=== PATIENT | male | born 1965 | race Caucasian/White ===

== ENCOUNTER → 2017-10-04 | Outpatient (CLI) | payer OTHER ==
[2017-10-04 08:00] LABS: ADD MAN DIFF? NO
[2017-10-04 08:25] LABS: BASO # 0.1 x10^3/uL (0.0-0.2); BASO % 1 % (0-3); EOS # 0.2 x10^3/uL (0.0-0.7); EOS % 2 % (0-3); HEMATOCRIT 50.1 % (39.0-53.0); HEMOGLOBIN 16.7 g/dL (13.0-17.5); LYMPH # 1.7 x10^3/uL (1.0-4.8); LYMPH % 21 % (24-48); MEAN CORPUSCULAR HEMOGLOBIN 32 pg (25-35); MEAN CORPUSCULAR HGB CONC 33 g/dL (31-37); MEAN CORPUSCULAR VOLUME 96 fL (79-100); MONO # 0.6 x10^3/uL (0.0-1.1); MONO % 8 % (0-9); NEUT # 5.4 x10^3uL (1.8-7.7); NEUT % 68 % (31-73); PLATELET COUNT 218 x10^3/uL (140-400); RED BLOOD COUNT 5.21 x10^6/uL (4.30-5.70); RED CELL DISTRIBUTION WIDTH 15.3 % (11.5-14.5)
[2017-10-04 08:26] LABS: ALBUMIN 3.9 g/dL (3.4-5.0); ALBUMIN/GLOBULIN RATIO 0.9 (1.0-1.7); ALK PHOS 52 U/L (46-116); ALT (SGPT) 28 U/L (16-63); ANION GAP 7 (6-14); AST (SGOT) 23 U/L (15-37); BLOOD UREA NITROGEN 13 mg/dL (8-26); BUN/CREATININE RATIO 13 (6-20); CALCIUM 8.7 mg/dL (8.5-10.1); CARBON DIOXIDE 32 mmol/L (21-32); CHLORIDE 103 mmol/L (98-107); CHOLESTEROL 190 mg/dL (0-200); GFR 78.5; GLUCOSE 102 mg/dL (70-99); HDLC 33 mg/dL (40-60); LDLC 146 mg/dL (0-100); NON-HDL CHOLESTEROL 157 mg/dL (0-129); POTASSIUM 3.8 mmol/L (3.5-5.1); SODIUM 142 mmol/L (136-145); TOTAL BILIRUBIN 0.6 mg/dL (0.2-1.0); TOTAL PROTEIN 8.2 g/dL (6.4-8.2); TRIGLYCERIDES 55 mg/dL (0-150); VLDLC 11 mg/dL (0-40)
[2017-10-04 08:27] LABS: CHOLESTEROL/HDL RATIO 5.8
[2017-10-04 08:34] LABS: THYROID STIM HORMONE (TSH) 1.884 uIU/mL (0.358-3.74)
[2017-10-04 08:34] LABS: FREE T4 0.98 ng/dL (0.76-1.46)
[2017-10-04 08:39] LABS: PROSTATE SPECIFIC ANTIGEN 0.58 ng/mL (0.00-4.00)
== END | disposition home or self-care (01) ==
LOC: LAB 06:50
DX: Z12.5 Encounter for screening for malignant neoplasm of prostate (principal); Z13.220 Encounter for screening for lipoid disorders; Z13.29 Encounter for screening for other suspected endocrine disorder; E66.9 Obesity, unspecified; Z79.899 Other long term (current) drug therapy
CPT/HCPCS: 36415; 80053; 80061; 82306; 84439; 84443; 85025; G0103

== ENCOUNTER → 2018-08-06 | Outpatient (CLI) | payer OTHER ==
--- NOTE | 2018-08-06 07:56 | RAD ---
CHEST PA LATERAL History: Worsening shortness of breath the last week, crackles Comparison: None. Findings: 2 views of the chest are submitted. There is airspace and interstitial opacity of the mid to inferior left hemithorax and also the right upper lobe, minimally of the right lower lobe. There is no significant pleural fluid or pneumothorax. Cardiac silhouette is within normal limits. Impression: 1. There is airspace and interstitial opacity bilaterally, no previous exams to evaluate for change. Findings may be due to infiltrates and/or edema, component of underlying interstitial lung disease not excluded. Electronically signed by: Kenneth Lyle MD (08/06/2018 7:52 AM) [id number]
== END | disposition home or self-care (01) ==
LOC: RAD 06:58
PROVIDERS: ATTEND Nurse Practitioner Gerontology
DX: R09.89 Other specified symptoms and signs involving the circulatory and respiratory systems (principal)
CPT/HCPCS: 71046

== ENCOUNTER → 2018-08-29 | Outpatient (CLI) | payer OTHER ==
--- NOTE | 2018-08-29 16:59 | RAD ---
CT chest without contrast 08/29/2018 CLINICAL INDICATION: Lung infiltrate, worsening shortness of breath, hypoxemia. COMPARISON: Chest 08/06/2018. TECHNIQUE: Multiple CT images of the chest were obtained without contrast. *One or more of the following individualized dose reduction techniques were utilized for this examination: 1. Automated exposure control. 2. Adjustment of the mA and/or kV according to patient size. 3. Use of iterative reconstruction technique. FINDINGS: Heart size is normal without significant pericardial effusion. The thoracic aorta is normal in caliber. Mild enlargement of the main pulmonary artery measuring 3.2 cm. No axillary or obvious hilar lymphadenopathy, though evaluation is limited in the absence of intravenous contrast. Mildly enlarged mediastinal lymphadenopathy with liability claims representative subcarinal lymphadenopathy measuring 1.2 cm short axis series 2/image 29. The central airways are patent. Incidental note is made of an azygos lobe. There is upper and lower lung traction bronchiectasis, subpleural reticulation and patchy groundglass opacities. Mild honeycombing in the anterior left upper lobe. There is a calcified granuloma in the superior segment left lower lobe. No pleural effusion or pneumothorax. There are no destructive osseous lesions. Limited images of the upper abdomen: Grossly unremarkable. IMPRESSION: 1. Upper and lower lung fibrosis in a pattern in consistent with UIP. Fibrotic type NSIP, chronic hypersensitivity pneumonitis , or drug toxicity (in the appropriate clinical setting) are considerations. 2. Mild pulmonary artery dilatation suggestive of pulmonary hypertension. 3. Mild mediastinal lymphadenopathy, likely reactive. Electronically signed by: Jed Aguila MD (08/29/2018 4:55 PM) [id number]
== END | disposition home or self-care (01) ==
LOC: CT 11:23
PROVIDERS: ATTEND Nurse Practitioner Gerontology
DX: J84.10 Pulmonary fibrosis, unspecified (principal); I28.8 Other diseases of pulmonary vessels; R59.1 Generalized enlarged lymph nodes
CPT/HCPCS: 71250

== ENCOUNTER → 2018-09-03 | Outpatient (CLI) | payer OTHER ==
--- NOTE | 2018-09-03 11:34 | CARD ---
MR#: [id number] Date of Study: 09/03/2018 Ordering Physician: BIN BARLOW, Referring Physician: BIN BARLOW, Tech: Bella Bass APPROVED REPORT EXAM: Two-dimensional and M-mode echocardiogram with Doppler and color Doppler. Other Information Quality : AverageHR: 82bpm INDICATION Edema RISK FACTORS Hypertension Hyperlipidemia 2D DIMENSIONS RVDd3.8 (2.9-3.5cm)Left Atrium(2D)4.1 (1.6-4.0cm) IVSd1.1 (0.7-1.1cm)Aortic Root(2D)3.5 (2.0-3.7cm) LVDd5.0 (3.9-5.9cm)LVOT Diameter2.4 (1.8-2.4cm) PWd1.5 (0.7-1.1cm)LVDs3.1 (2.5-4.0cm) FS (%) 38.3 %SV80.9 ml LVEF(%)68.3 (>50%) Aortic Valve AoV Peak Rashard.147.0cm/sAoV VTI29.3cm AO Peak GR.8.6mmHgLVOT Peak Rashard.101.9cm/s LVOT VTI 19.72cmAO Mean GR.5mmHg DEON (VMAX)2.95aj9ILJ (VTI)3.00cm2 Mitral Valve MV E Rhowlmka81.6cm/sMV DECEL THEO989bt MV A Lgcndhyx36.7cm/sMV OSL18wn E/A Ratio1.1MVA (PHT)3.31cm2 TDI E/Lateral E'8.0E/Medial E'9.9 Pulmonary Valve PV Peak Ituibqfm588.6cm/sPV Peak Grad.6mmHg Tricuspid Valve TR P. Ximdnkdk377vb/sRAP QIWOYNHN8opDd TR Peak Gr.91mhMqBKMJ95vfJn Pulmonary Vein S1 Dlyqumux74.7cm/sD2 Wdaepqng33.8cm/s PVa motonevl837mzwn LEFT VENTRICLE The left ventricle is normal size. There is mild to moderate concentric left ventricular hypertrophy. The left ventricular systolic function is normal. The Ejection Fraction is 55-60%. There is normal L V segmental wall motion. RIGHT VENTRICLE The right ventricle is normal size. There is normal right ventricular wall thickness. ATRIA The left atrium size is normal. The right atrium size is normal. The interatrial septum is intact wit h no evidence for an atrial septal defect or patent foramen ovale as noted on 2-D or Doppler imaging. AORTIC VALVE The aortic valve is normal in structure and function. Doppler and Color Flow revealed trace aortic re gurgitation. There is no significant aortic valvular stenosis. MITRAL VALVE The mitral valve is normal in structure and function. There is no mitral valve stenosis. Doppler and Color-flow revealed trace mitral regurgitation. TRICUSPID VALVE The tricuspid valve is normal in structure and function. Doppler and Color Flow revealed trace tricus pid regurgitation. There is no tricuspid valve stenosis. PULMONIC VALVE The pulmonic valve is not well visualized. Doppler and Color Flow revealed trace pulmonic valvular re gurgitation. GREAT VESSELS The aortic root is normal in size. Normal pulmonary venous flow (Doppler). The IVC is normal in size and collapses >50% with inspiration. PERICARDIAL EFFUSION There is no evidence of significant pericardial effusion. Critical Notification Critical Value: No <Conclusion> The left ventricular systolic function is normal. The Ejection Fraction is 55-60%. There is normal LV segmental wall motion. Trace mitral regurgitation. Trace tricuspid regurgitation. There is no evidence of significant pericardial effusion. Signed by : Griffin Chris, Electronically Approved : 09/03/2018 11:33:01
== END | disposition home or self-care (01) ==
LOC: ECHO 08:14
PROVIDERS: ATTEND Nurse Practitioner Gerontology
DX: R60.0 Localized edema (principal); R91.8 Other nonspecific abnormal finding of lung field; I10 Essential (primary) hypertension; E78.5 Hyperlipidemia, unspecified
CPT/HCPCS: 93306

== ENCOUNTER → 2018-10-02 | Outpatient (CLI) | payer OTHER ==
[~2018-10-02] MED LIST: ATOR10TA60 PO; BECL10.62 IH; CHOL2000 PO; MULT1TAB52 PO; OMEP20CA10 PO; OXYC5TAB4 PO; SENN-22 PO; VALS1TAB8 PO
[2018-10-02 09:04] LABS: ALBUMIN 3.4 g/dL (3.4-5.0); DIRECT BILIRUBIN 0.2 mg/dL (0.0-0.2); TOTAL BILIRUBIN 0.9 mg/dL (0.2-1.0); TOTAL PROTEIN 7.8 g/dL (6.4-8.2)
[2018-10-02 09:23] LABS: C-REACTIVE PROTEIN 5.1 mg/L (0-3.3)
[2018-10-02 21:17] LABS: RHEUMATOID FACTOR <10.0 IU/mL (0.0-13.9)
[2018-10-04 14:22] LABS: C ANCA <1:20 titer (Neg:<1:20); P ANCA <1:20 titer (Neg:<1:20)
[2018-10-06 19:18] LABS: ANA INTERP Negative (.)
== END | disposition home or self-care (01) ==
LOC: LAB 08:15
PROVIDERS: ATTEND Internal Medicine Pulmonary Disease
DX: R09.02 Hypoxemia (principal)
CPT/HCPCS: 36415; 80076; 85651; 86021; 86038; 86140; 86431

== ENCOUNTER → 2018-11-14 | Outpatient (CLI) | payer OTHER ==
--- NOTE | 2018-11-14 08:54 | RAD ---
PQRS Compliance statement: One or more of the following individualized dose reduction techniques were utilized for this examination: 1. Automated exposure control. 2. Adjustment of the mA and/or kV according to patient size. 3. Use of iterative reconstruction technique. Indication:abdomen pain, llq pain TECHNIQUE: CT abdomen and pelvis without IV contrast with multiplanar reformats. COMPARISON: None FINDINGS: Limited evaluation of solid abdominal and pelvic organs due to lack of IV contrast. Heart is normal in size. No pericardial or pleural effusion. Interstitial opacities are seen in the bilateral lower lobes noncontrast appearance of the liver, spleen, gallbladder, pancreas, adrenals and kidneys are within normal limits. No enlarged retroperitoneal or pelvic adenopathy. No free pelvic fluid or ascites. Circumferential wall thickening is seen of the short segment of the sigmoid colon with mild pericolonic inflammatory changes. No bowel obstruction. Normal appendix. The prostate and seminal vesicles show no large mass. Urinary bladder is within normal limits. Bilateral L5 pars defect with grade 1 anterolisthesis of L5 on S1. No suspicious bony lesion. IMPRESSION: Limited evaluation of solid abdominal and pelvic organs due to lack of IV contrast. 1. Short segment wall thickening of the proximal sigmoid colon with pericolic inflammatory changes without diverticula. Findings suggests focal colitis. Colonoscopy recommended after acute phase resolves to rule out underlying mass. 2. Chronic interstitial changes in the visualized lung bases suggests changes of interstitial lung disease. Electronically signed by: Jay Jay Hdz DO (11/14/2018 8:51 AM) [id number]
== END | disposition home or self-care (01) ==
LOC: CT 08:17
PROVIDERS: ATTEND Nurse Practitioner Gerontology
DX: K63.89 Other specified diseases of intestine (principal); M43.17 Spondylolisthesis, lumbosacral region
CPT/HCPCS: 74176

== ENCOUNTER → 2018-11-26 | Outpatient (CLI) | payer OTHER ==
[~2018-11-26] MED LIST changes: +ALBUTEROL SULFATE 2.5 MG/3 ML NEBU. NEB ONE
--- NOTE | 2018-11-28 15:00 | RESP ---
DATE OF SERVICE: The patient underwent full pulmonary function testing dated 11/26/2018. The FEV1 to FVC ratio was 76%, FEV1 was 2.01 liters or 51% of predicted. FVC was likewise diminished at 2.63 liters at 51% of predicted. There was no significant bronchodilator response. Total lung capacity was decreased at 58% of predicted. Vital capacity was decreased. Residual volume was decreased. Diffusion capacity was preserved. IMPRESSION: 1. Moderate restrictive disorder. 2. Preserved DLCO. CEDRICK MORAN MD DR: ALDO/austyn JOB#: [id number] / [id number] CHRISSY Rush
== END | disposition home or self-care (01) ==
LOC: PF 09:40
PROVIDERS: ATTEND Internal Medicine Critical Care Medicine
DX: J98.4 Other disorders of lung (principal)
CPT/HCPCS: 94060; 94640; 94729; J7613

== ENCOUNTER → 2018-12-10 | Outpatient (CLI) | payer OTHER ==
[~2018-12-10] MED LIST changes: -ALBUTEROL SULFATE 2.5 MG/3 ML NEBU. NEB ONE
[2018-12-10 14:15] LABS: BASO # 0.1 x10^3/uL (0.0-0.2); BASO % 1 % (0-3); EOS # 0.2 x10^3/uL (0.0-0.7); EOS % 3 % (0-3); HEMATOCRIT 48.2 % (39.0-53.0); HEMOGLOBIN 16.1 g/dL (13.0-17.5); LYMPH # 1.6 x10^3/uL (1.0-4.8); LYMPH % 19 % (24-48); MEAN CORPUSCULAR HEMOGLOBIN 32 pg (25-35); MEAN CORPUSCULAR HGB CONC 34 g/dL (31-37); MEAN CORPUSCULAR VOLUME 96 fL (79-100); MONO # 0.7 x10^3/uL (0.0-1.1); MONO % 8 % (0-9); NEUT # 5.7 x10^3uL (1.8-7.7); NEUT % 69 % (31-73); PLATELET COUNT 187 x10^3/uL (140-400); RED BLOOD COUNT 5.03 x10^6/uL (4.30-5.70); RED CELL DISTRIBUTION WIDTH 14.8 % (11.5-14.5); WHITE BLOOD COUNT 8.2 x10^3/uL (4.0-11.0)
[2018-12-10 14:23] LABS: CALCIUM 8.9 mg/dL (8.5-10.1); CREATININE 1.1 mg/dL (0.7-1.3); POTASSIUM 3.7 mmol/L (3.5-5.1)
[2018-12-10 14:26] LABS: PROTHROMBIN TIME PATIENT 12.7 SEC (11.7-14.0)
--- NOTE | 2018-12-10 14:43 | EKG ---
[facility] [address] [place] [address] Test Date: 2018-12-10 Test Time: 13:34:01 Pat Name: SARAN CAAL Department: Room: Gender: M Area Sales Manager: : 1965 Requested By: VARINDER BURTON Order Number: [id number] Reading MD: Yared Obrien MD Measurements Intervals Badin Rate: 73 P: 41 WI: 192 QRS: 116 QRSD: 88 T: 24 QT: 368 QTc: 409 Interpretive Statements SINUS RHYTHM MILD RIGHT AXIS DEVIATION NON-SPECIFIC FINDINGS Electronically Signed On 12-11-2018 9:10:11 CDT by Yared Obrien MD
== END | disposition home or self-care (01) ==
LOC: SURGPAT 12:21
PROVIDERS: ATTEND Thoracic Surgery (Cardiothoracic Vascular Surgery)
DX: Z01.818 Encounter for other preprocedural examination (principal); R94.31 Abnormal electrocardiogram [ECG] [EKG]
CPT/HCPCS: 36415; 80048; 85025; 85610; 85730; 93005

== ENCOUNTER → 2019-04-03 | Outpatient (CLI) | payer OTHER ==
[2018-12-11 11:41] VITALS: BP 124/70
--- NOTE | 2019-04-03 14:03 | RAD ---
CT chest without contrast HISTORY: Interstitial lung disease PQRS Compliance Statement: One or more of the following individualized dose reduction techniques were utilized for this examination: 1. Automated exposure control 2. Adjustment of the mA and/or kV according to patient size 3. Use of iterative reconstruction technique COMPARISON: August 29, 2018 FINDINGS: Thyroid gland unremarkable No pericardial or pleural effusions Mediastinal lymphadenopathy is stable No acute infiltrates. Interstitial fibrosis stable compared with August 29, 2018. This includes involvement of the upper and lower lobes. The interstitial interlobular prominence with subpleural reticulation and groundglass changes within stable. No new or progressive nodules are present. Visualized upper abdominal organs are unremarkable IMPRESSION: Stable whole lung interstitial fibrosis when compared with August 29 examination. No new or progressive changes or nodules are apparent. Stable mediastinal lymphadenopathy Electronically signed by: Obdulio Babb MD (04/03/2019 1:54 PM) [facility]
== END | disposition home or self-care (01) ==
LOC: CT 08:04
PROVIDERS: ATTEND Internal Medicine Critical Care Medicine
DX: J84.10 Pulmonary fibrosis, unspecified (principal); R59.0 Localized enlarged lymph nodes; J84.9 Interstitial pulmonary disease, unspecified
CPT/HCPCS: 71250

== ENCOUNTER → 2019-07-09 | Outpatient (CLI) | payer OTHER ==
[2018-12-11 11:41] VITALS: BP 124/70
[2019-07-09 08:17] LABS: BASO % 0 % (0-3); EOS # 0.1 x10^3/uL (0.0-0.7); EOS % 1 % (0-3); HEMATOCRIT 49.4 % (39.0-53.0); HEMOGLOBIN 16.9 g/dL (13.0-17.5); LYMPH # 1.1 x10^3/uL (1.0-4.8); LYMPH % 11 % (24-48); MEAN CORPUSCULAR HEMOGLOBIN 33 pg (25-35); MEAN CORPUSCULAR HGB CONC 34 g/dL (31-37); MEAN CORPUSCULAR VOLUME 95 fL (79-100); MONO # 0.9 x10^3/uL (0.0-1.1); MONO % 9 % (0-9); NEUT # 7.9 x10^3/uL (1.8-7.7); NEUT % 79 % (31-73); PLATELET COUNT 206 x10^3/uL (140-400); RED BLOOD COUNT 5.18 x10^6/uL (4.30-5.70); RED CELL DISTRIBUTION WIDTH 15.4 % (11.5-14.5); WHITE BLOOD COUNT 10.1 x10^3/uL (4.0-11.0)
[2019-07-09 09:20] LABS: ALBUMIN/GLOBULIN RATIO 1.1 (1.0-1.7); CALCIUM 8.9 mg/dL (8.5-10.1); GFR 77.9; TOTAL BILIRUBIN 0.6 mg/dL (0.2-1.0); TOTAL PROTEIN 7.8 g/dL (6.4-8.2)
[2019-07-09 09:26] LABS: THYROID STIM HORMONE (TSH) 1.574 uIU/mL (0.358-3.74)
[2019-07-09 09:31] LABS: POTASSIUM 4.2 mmol/L (3.5-5.1)
== END | disposition home or self-care (01) ==
LOC: LAB 06:46
PROVIDERS: ATTEND Nurse Practitioner Gerontology
DX: R53.83 Other fatigue (principal)
CPT/HCPCS: 36415; 80053; 82306; 84439; 84443; 85025

== ENCOUNTER → 2019-07-23 | Outpatient (CLI) | payer OTHER ==
[2018-12-11 11:41] VITALS: BP 124/70
--- NOTE | 2019-07-23 15:38 | KCIC ---
EYE FOR FOREIGN BODY History: MRI screening, previous metal to the left eye Comparison: None. Findings: 2 views of the orbits are submitted. No metallic foreign body is identified in region of orbits. Impression: 1. No metallic foreign body is identified in the region of the orbits. Electronically signed by: Kenneth Lyle MD (07/23/2019 3:35 PM) [email or web address]
--- NOTE | 2019-07-23 16:27 | KCIC ---
MRI Brain without contrast History: Acute intractable headache Technique: Multiplanar, multisequential noncontrast MR imaging was performed of the brain. Comparison: None Findings: There is some motion degradation, some image sequences repeated although also degraded by motion.The ventricles, sulci, and cisterns are within normal limits in size and configuration. There is no significant midline shift, intraaxial mass effect, or focal abnormal extra-axial fluid collection. There is no convincing significant focal signal abnormality of the brain parenchyma, limited motion for subtle signal change due to motion. There is no significant hemosiderin deposition the brain parenchyma. There is preservation of the major intracranial flow-voids at the skull base. The mastoid air cells are aerated. The cerebellar tonsils are normal in location. There is no significant abnormality of the pineal gland or pituitary gland. There is patchy mild bilateral ethmoid air cell mucosal thickening. There is nonspecific somewhat heterogeneous low signal of the marrow of the nonexpanded clivus. Impression: 1. Exam is degraded by motion, no significant intracranial abnormality identified. Electronically signed by: Kenneth Lyle MD (07/23/2019 4:24 PM) [facility]
== END | disposition home or self-care (01) ==
LOC: KCIC MRI 15:13
PROVIDERS: ATTEND Nurse Practitioner Gerontology
DX: J34.89 Other specified disorders of nose and nasal sinuses (principal)
CPT/HCPCS: 70030; 70551

== ENCOUNTER 2019-10-07 07:15 | Day surgery (SDC) | payer OTHER ==
[~2019-10-07] VITALS: Ht 180.3 cm; Wt 152.9 kg
[~2019-10-07 07:15] MED LIST changes: +CALC600T4 PO; +HYDROmorphone 2 MG/ML VIAL IV PRN; +IV RINGERS,LACTATED 1000ML 1,000 ML IV SCH; +MORPHINE SULFATE 2 MG/ML VIAL. IV PRN; +OMEG1CAP27 PO; -OMEP20CA10 PO; +OMEP20CA16 PO; +ONDANSETRON PF 4 MG/2 ML VIAL. IV PRN; +PRED20TA PO; +PROCHLORPERAZINE 10 MG/2 ML VIAL. IV PRN; +fentaNYL PF VIAL 100 MCG/2 ML VIAL IV PRN
[2019-10-07] MEDS: CYCLOPENTOLATE 1% OPTH SOLUTION 2ML BOTTLE. OS SCH ×3 (10:00→10:10)
[2019-10-07] MEDS: PHENYLEPHRINE 10% OPHTH SOLUTION 5ML BOTTLE. OS SCH ×3 (10:00→10:10)
[2019-10-07] MEDS ORDERED: NEO/POLYMYX/DEXAMETH OPHTH OINTMENT 3.5GM TUBE. ONE (10:02)
[2019-10-07] MEDS ORDERED: LIDOCAINE 1% PF 2 ML VIAL. ONE (10:02)
[2019-10-07] MEDS ORDERED: CHONDROIT-SOD-HYALURONATE KIT. ONE (10:02)
[2019-10-07] MEDS ORDERED: CIPROFLOXACIN 0.3% OPHTH SOLUTION 5ML BOTTLE. OS ONE (11:00)
[2019-10-07] MEDS ORDERED: PROPARACAINE 0.5% OPHTH SOLUTION 15ML BOTTLE. OS ONE (11:00)
[2019-10-07] MEDS ORDERED: LIDOCAINE 2% JELLY 6ML IN APPLICATOR. MM SCH (11:00)
[2019-10-07] MEDS ORDERED: MIDAZOLAM HCL/PF 2 MG/2 ML VIAL. ONE (11:39)
[2019-10-07 12:11] VITALS: BP 145/85
[2019-10-07] MEDS ORDERED: TETRACAINE 0.5% OPHTH SOLUTION 4ML BOTTLE. OS ONE (12:15)
--- NOTE | 2019-10-07 12:44 | OP ---
DATE OF SURGERY: 10/07/2019 PREOPERATIVE DIAGNOSIS: Senile cataract, left eye. POSTOPERATIVE DIAGNOSIS: Senile cataract, left eye. PROCEDURE: Phacoemulsification with posterior chamber lens implant, left eye. ANESTHESIA: Topical with MAC. DESCRIPTION OF PROCEDURE: The patient's dilating and anesthetic drops were applied in the outpatient department and the Honan balloon cuff used for about 15-20 minutes. The patient was brought to the operating room, positioned on the table and the left eye was prepped and draped in the usual sterile manner for an intraocular procedure. A lid speculum was placed between the eyelids and the operating microscope brought into position. A paracentesis incision was made inferotemporally and 1% lidocaine injected in the anterior chamber followed by an injection of Viscoat. The primary 2.4 mm incision was made temporally. A capsulorrhexis was made about the dilated pupillary border. It was about 6 mm in size. The lens nucleus was hydrodissected and phacoemulsified without difficulty and the remaining cortex aspirated with the I/A handpiece. Provisc was used to insufflate the bag and a posterior chamber lens, which was multifocal and toric in nature, was placed into the bag without difficulty. The lens was rotated so that the toric axis was at 15-20 degrees. The viscoelastic was aspirated and the eye pressurized and the wound checked for leaks and there were none. The speculum and drape were removed and Maxitrol ointment instilled in the conjunctival sac and the eye was shielded. The patient was taken to recovery room in satisfactory condition. There were no complications and I will see him tomorrow in my office. K CAMMY WOLF MD DR: XAVIER/austyn JOB#: [id number] / [id number]
== END 2019-10-07 12:40 | disposition home or self-care (01) ==
LOC: SURG 07:15
PROVIDERS: ATTEND Ophthalmology
DX: H25.89 Other age-related cataract (principal); E78.00 Pure hypercholesterolemia, unspecified; G47.30 Sleep apnea, unspecified; J84.10 Pulmonary fibrosis, unspecified; E66.01 Morbid (severe) obesity due to excess calories; Z68.42 Body mass index [BMI] 45.0-49.9, adult; Z87.891 Personal history of nicotine dependence; Z98.42 Cataract extraction status, left eye; Z98.41 Cataract extraction status, right eye; Z72.89 Other problems related to lifestyle; Z96.1 Presence of intraocular lens
CPT/HCPCS: 66984; C1780; J0171; J2250

== ENCOUNTER 2019-10-14 06:28 | Day surgery (SDC) | payer OTHER ==
[~2019-10-14] VITALS: Ht 180.3 cm; Wt 152.9 kg
[~2019-10-14 06:28] MED LIST changes: +CIPROFLOXACIN 0.3% OPHTH SOLUTION 5ML BOTTLE. OD ONE; -HYDROmorphone 2 MG/ML VIAL IV PRN; -IV RINGERS,LACTATED 1000ML 1,000 ML IV SCH; +LIDOCAINE 2% JELLY 6ML IN APPLICATOR. MM ONE; -MORPHINE SULFATE 2 MG/ML VIAL. IV PRN; -ONDANSETRON PF 4 MG/2 ML VIAL. IV PRN; -PROCHLORPERAZINE 10 MG/2 ML VIAL. IV PRN; +PROPARACAINE 0.5% OPHTH SOLUTION 15ML BOTTLE. OD ONE; -fentaNYL PF VIAL 100 MCG/2 ML VIAL IV PRN
[2019-10-14] MEDS ORDERED: LIDOCAINE 1% PF 2 ML VIAL. ID PRN (07:00)
[2019-10-14] MEDS ORDERED: IV RINGERS,LACTATED 1000ML 1,000 ML IV SCH (07:00)
[2019-10-14] MEDS ORDERED: HYDROmorphone 2 MG/ML VIAL IV PRN (07:00)
[2019-10-14] MEDS ORDERED: PROCHLORPERAZINE 10 MG/2 ML VIAL. IV PRN (07:00)
[2019-10-14] MEDS ORDERED: ONDANSETRON PF 4 MG/2 ML VIAL. IV PRN (07:00)
[2019-10-14] MEDS ORDERED: MORPHINE SULFATE 2 MG/ML VIAL. IV PRN (07:00)
[2019-10-14] MEDS ORDERED: fentaNYL PF VIAL 100 MCG/2 ML VIAL IV PRN ×2 (07:00)
[2019-10-14] MEDS ORDERED: CHONDROIT-SOD-HYALURONATE KIT. ONE (07:35)
[2019-10-14] MEDS ORDERED: LIDOCAINE 1% PF 2 ML VIAL. ONE (07:35)
[2019-10-14] MEDS ORDERED: TETRACAINE 0.5% OPHTH SOLUTION 4ML BOTTLE. OD ONE (07:45)
[2019-10-14] MEDS ORDERED: NEO/POLYMYX/DEXAMETH OPHTH SUSPENSION 5ML BOTTLE. OD ONE (07:45)
[2019-10-14] MEDS: CYCLOPENTOLATE 1% OPTH SOLUTION 2ML BOTTLE. OD SCH ×3 (10:13→10:24)
[2019-10-14] MEDS: PHENYLEPHRINE 10% OPHTH SOLUTION 5ML BOTTLE. OD SCH ×3 (10:13→10:24)
[2019-10-14] MEDS ORDERED: MIDAZOLAM HCL/PF 2 MG/2 ML VIAL. ONE (10:43)
[2019-10-14 12:26] VITALS: BP 134/72
--- NOTE | 2019-10-14 14:08 | OP ---
DATE OF SURGERY: 10/14/2019 PREOPERATIVE DIAGNOSIS: Senile cataract, right eye. POSTOPERATIVE DIAGNOSIS: Senile cataract, right eye. PROCEDURE: Phacoemulsification with posterior chamber lens implant with use of multifocal toric implant. ANESTHESIA: Topical with MAC. DESCRIPTION OF PROCEDURE: The patient's anesthetic and dilating drops were placed in the right eye in the outpatient department and the Honan balloon cuff used for about 10-15 minutes. The eye was marked for astigmatism in the outpatient department. The patient was then brought to the operating room and positioned on the table and the right eye was prepped and draped in the usual sterile manner for an intraocular procedure. A lid speculum was placed between the eyelids and the operating microscope brought into position. There was good dilation of the pupil. A paracentesis incision was made superior temporally and an injection of 1% lidocaine was made followed by an injection of Viscoat. The 2.4 mm keratome was used to make the temporal incision. A capsulorrhexis was made about the dilated pupillary border and the lens nucleus hydrodissected. The phaco handpiece was used to phacoemulsify the lens nucleus and the remaining cortex was aspirated with the I/A handpiece. The multifocal toric implant was injected into the bag and rotated to the proper axis, which was about 150 degrees. The viscoelastic was aspirated with the I/A handpiece. The lens was checked again for astigmatism position and it was good. The wound was hydrated and the eye was pressurized and the wound was checked for leaks and there were none. The speculum and drape were removed. Maxitrol ointment instilled in the conjunctival sac and the eye was shielded. The patient was taken to the recovery room in satisfactory condition. There were no complications. I will see the patient tomorrow in my office. K CAMMY WOLF MD DR: XAVIER/austyn JOB#: [id number] / [id number]
== END 2019-10-14 12:42 | disposition home or self-care (01) ==
LOC: SURG 06:28
PROVIDERS: ATTEND Ophthalmology
DX: H25.811 Combined forms of age-related cataract, right eye (principal); I10 Essential (primary) hypertension; K21.9 Gastro-esophageal reflux disease without esophagitis; Z79.899 Other long term (current) drug therapy; Z98.890 Other specified postprocedural states; Z83.518 Family history of other specified eye disorder
CPT/HCPCS: 66982; J0171; V2632; J2250; V2788

== ENCOUNTER → 2020-02-18 | Outpatient (CLI) | payer OTHER ==
[~2020-02-18] MED LIST changes: +BUSP5TAB PO; -CALC600T4 PO; +CALC600T5 PO; -CIPROFLOXACIN 0.3% OPHTH SOLUTION 5ML BOTTLE. OD ONE; -LIDOCAINE 2% JELLY 6ML IN APPLICATOR. MM ONE; +MULT-445 PO; -MULT1TAB52 PO; -PROPARACAINE 0.5% OPHTH SOLUTION 15ML BOTTLE. OD ONE
[2020-02-18 07:40] LABS: ALBUMIN 3.6 g/dL (3.4-5.0); ALBUMIN/GLOBULIN RATIO 0.9 (1.0-1.7); CREATININE 0.8 mg/dL (0.7-1.3); GFR 100.7; TOTAL BILIRUBIN 0.7 mg/dL (0.2-1.0); TOTAL PROTEIN 7.4 g/dL (6.4-8.2)
[2020-02-18 07:54] LABS: CHOLESTEROL/HDL RATIO 4.5
[2020-02-19 00:07] LABS: HEMOGLOBIN A1C 5.7 % (4.8-5.6)
== END | disposition home or self-care (01) ==
LOC: LAB 06:59
PROVIDERS: ATTEND Family Medicine
DX: R73.09 Other abnormal glucose (principal)
CPT/HCPCS: 36415; 80053; 80061; 83036

== ENCOUNTER → 2020-02-26 | Outpatient (CLI) | payer OTHER ==
[~2020-02-26] MED LIST changes: +CALC600T4 PO; -CALC600T5 PO
== END | disposition home or self-care (01) ==
LOC: LAB 13:16
PROVIDERS: ATTEND Internal Medicine Cardiovascular Disease
DX: Z11.59 Encounter for screening for other viral diseases (principal); Z01.810 Encounter for preprocedural cardiovascular examination
CPT/HCPCS: 36415; U0003

== ENCOUNTER 2020-03-01 06:51 | Outpatient (CLI) | payer OTHER ==
[~2020-03-01] VITALS: Ht 180.3 cm; Wt 145.1 kg
[2020-03-01] VITALS (12 sets, daily range): BP systolic 111–134; BP diastolic 67–79
[~2020-03-01 06:51] MED LIST changes: -BUSP5TAB PO
[2020-03-01 07:27] LABS: HEMATOCRIT 48.9 % (39.0-53.0); HEMOGLOBIN 16.7 g/dL (13.0-17.5); RED BLOOD COUNT 5.09 x10^6/uL (4.30-5.70); RED CELL DISTRIBUTION WIDTH 14.9 % (11.5-14.5); WHITE BLOOD COUNT 9.4 x10^3/uL (4.0-11.0)
[2020-03-01 07:36] LABS: CALCIUM 8.7 mg/dL (8.5-10.1); CREATININE 0.9 mg/dL (0.7-1.3); GFR 87.9; POTASSIUM 3.9 mmol/L (3.5-5.1)
[2020-03-01 07:37] LABS: PROTHROMBIN TIME PATIENT 12.1 SEC (11.7-14.0)
[2020-03-01] MEDS ORDERED: LIDOCAINE 1% PF 2 ML VIAL. ONE (07:42)
[2020-03-01] MEDS ORDERED: IOHEXOL 300 MG/ML 100ML VIAL. ONE (07:42)
[2020-03-01] MEDS ORDERED: HEPARIN for IV BOLUS 10,000 UNIT/10 ML VIAL. ONE (08:02)
[2020-03-01] MEDS ORDERED: MIDAZOLAM HCL/PF 5 MG/5 ML VIAL. ONE (08:02)
[2020-03-01] MEDS ORDERED: fentaNYL PF VIAL 100 MCG/2 ML VIAL ONE (08:02)
[2020-03-01] MEDS ORDERED: NITROGLYCERIN 200 MCG/2 ML SYRINGE FOR CATH/VASC LAB. ONE (08:02)
[2020-03-01] MEDS ORDERED: VERAPAMIL 5 MG/2 ML VIAL. ONE (08:02)
[2020-03-01] MEDS ORDERED: BUSP5TAB PO (08:14)
[2020-03-01] MEDS ORDERED: NITROGLYCERIN 200 MCG/2 ML SYRINGE FOR CATH/VASC LAB. IART ONE (08:15)
[2020-03-01] MEDS ORDERED: MIDAZOLAM HCL/PF 5 MG/5 ML VIAL. IV ONE (08:15)
[2020-03-01] MEDS ORDERED: LIDOCAINE 1% PF 2 ML VIAL. INJ ONE (08:15)
[2020-03-01] MEDS ORDERED: VERAPAMIL 5 MG/2 ML VIAL. IART ONE (08:15)
[2020-03-01] MEDS ORDERED: IOHEXOL 300 MG/ML 100ML VIAL. IART ONE (08:15)
[2020-03-01] MEDS ORDERED: fentaNYL PF VIAL 100 MCG/2 ML VIAL IV ONE (08:15)
[2020-03-01] MEDS ORDERED: HEPARIN for IV BOLUS 10,000 UNIT/10 ML VIAL. IART ONE (08:15)
[2020-03-01] MEDS ORDERED: IV 1/2 NORMAL SALINE 1,000 ML IV SCH (09:10)
--- NOTE | 2020-03-01 09:10 | PDOC ---
MODERATE SEDATION ASSESSMENT RISKS/ALTERNATIVES Risks/Alternatives Risks and alternatives of this type of sedation and procedure discussed with: RISK/ALTERNATIVES: Patient H & P ON CHART H & P H & P on chart and reviewed for co-morbid conditions and appropriate labs. H&P ON CHART: Yes STATUS PREG STATUS ASSESSED: N/A MEDS/ALLERGIES REVIEWED Meds/Allergies Reviewed Medications and Allergies including time and route of recently administered narcotics and sedatives. MEDS/ALLERGIES REVIEWED: Yes ASA RATING ASA RATING: II AIRWAY ASSESSMENT Airway Assessment Airway patency, oral function limitations, presence of caps, crowns, dentures, partials, and ability to extend neck assessed. AIRWAY ASSESSMENT: Yes MALLAMPATI SCORE MALLAMPATI SCORE: II PRE-SEDATION ASSESSMENT PRE-SEDATION ASSESSMENT: Yes LEYLA VAZQUEZ MD Mar 01, 2020 09:10
--- NOTE | 2020-03-01 09:14 | CARD ---
MR#: [id number] Date of Study: 03/01/2020 Ordering Physician: LEYLA VAZQUEZ, Referring Physician: LEYLA VAZQUEZ Tech: SALVADOR DUARTE RTR APPROVED REPORT Technologist: SALVADOR DUARTE RTR Nurse: Lilliam Higuera R.N. Procedure(s) performed: Left heart catheterization, selective coronary angiography and left ventricul ography via right transradial approach MODERATE SEDATION TIME: 35 minutes FLUORO TIME: 3.3 MIN DOSE: 76.8 GYCM2 CONTRAST: 133CC OMNI INDICATION The indication(s) include : Chest pain and abnormal stress test. CSHA Clinical Frailty Scale CSHA Clinical Frailty Scale: Managing Well Heart Failure Heart Failure: No PROCEDURE NARRATIVE After explaining the risks, benefits and alternative options, informed consent was obtained from odette ent. Patient was brought to the cardiac Central Office Maintainer and right wrist was prepped and draped in the usual fashion after confirming a positive modified Massimo's test. Arterial access was obtained in the righ t radial artery and a 6 Ivorian sheath was inserted. 6 Ivorian Abundio catheter was used to perform tanvir ective angiography of the left and right coronary arteries. 6 Ivorian pigtail catheter was used to pe rform left ventriculography. Patient tolerated the procedure well. Hemostasis was achieved using TR band. There were no immediate complications. The following findings were noted. FINDINGS 1. Hemodynamics: Left ventricular end-diastolic pressure of 19 mmHg. No pullback gradient across th e aortic valve. 2. Left ventriculography: Normal left ventricle systolic function with ejection fraction estimated at 60%. No significant mitral regurgitation seen. 3. Coronary angiography: a. The left main coronary artery arose from the left sinus of Valsalva, gave rise to the left anteri or descending and left circumflex arteries and did not show any significant stenosis. b. The left anterior descending artery did not show any significant stenosis. c. The left circumflex artery did not show any significant stenosis. d. The right coronary artery was a large and dominant vessel arising from the right sinus of Valsalv a that did not show any significant stenosis. Conclusion 1. No significant coronary disease. 2. Normal left ventricular systolic function with ejection fraction estimated at 60%. Signed by : Leyla Vazquez, Electronically Approved : 03/01/2020 09:14:07
[2020-03-01] MEDS ORDERED: 0.9 % SODIUM CHLORIDE 10 ML DISP.SYRIN. IV PRN (09:15)
--- NOTE | 2020-03-01 12:26 | NUR ---
Discharge Note: SARAN CAAL Discharge instructions and discharge home medications reviewed with Patient and a copy given. All questions have been answered and understanding verbalized. Dressing to R radial site clean and dry, armboard in place. Pt ambulated with steady gait, tolerated PO. The following instructions and handouts were given: radial site care, sedation, work note provided. Discontinued lines and drains: Peripheral IV intact. Patient discharged to Home or Self Care with Family Member via Wheelchair NATALIYA RATLIFF Addendum: 03/01/20 at 1235 by GUERDA GRANT RN Amended: Links added.
== END 2020-03-01 12:25 | disposition home or self-care (01) ==
LOC: CCL 06:51
PROVIDERS: ATTEND Internal Medicine Cardiovascular Disease
DX: R07.9 Chest pain, unspecified (principal)
CPT/HCPCS: 36415; 80048; 85027; 85610; 93458; 99152; 99153; C1769; C1892; J1644; J2250; J3010; J3490; Q9967

== ENCOUNTER → 2020-03-29 | Outpatient (CLI) | payer OTHER ==
[~2020-03-29] MED LIST changes: +BUSP5TAB PO; -CALC600T4 PO; +CALC600T5 PO
[2020-03-29 13:39] LABS: BILIRUBIN,URINE NEGATIVE (NEG); CLARITY,URINE CLEAR; COLOR,URINE YELLOW; NITRITE,URINE NEGATIVE (NEG); PROTEIN,URINE NEGATIVE (NEG-TRACE); UROBILINOGEN,URINE 0.2 mg/dL (0.2 mg/dL)
[2020-03-29 13:51] LABS: SQUAMOUS EPITHELIAL CELL,UR OCC /LPF
[2020-03-29 13:52] LABS: BACTERIA,URINE 0 /HPF (0-FEW); RBC,URINE 0 /HPF (0-2); WBC,URINE 0 /HPF (0-4)
== END | disposition home or self-care (01) ==
LOC: LAB 12:10
PROVIDERS: ATTEND Family Medicine
DX: Z68.41 Body mass index [BMI] 40.0-44.9, adult (principal)
CPT/HCPCS: 81001; 87086

== ENCOUNTER → 2020-05-27 | Outpatient (CLI) | payer OTHER ==
[~2020-05-27] MED LIST changes: -CALC600T5 PO; +CALC600T6 PO
--- NOTE | 2020-05-27 10:39 | RAD ---
EXAM: CT Chest without IV contrast INDICATION: Reason: ILD / Spl. Instructions: / History: TECHNIQUE: Multi-detector row CT images were acquired from the thoracic inlet through the upper abdomen without the use of IV contrast. Sagittal and coronal images were acquired from the transaxial data. All CT scans performed at this facility utilize dose optimization techniques as appropriate to the exam, including the following: Automated exposure control and adjustment of the mA and/or KV according to patient size (this includes techniques or standardized protocols for targeted exams where dose is indication/reason for exam). COMPARISON: Noncontrast chest CT 04/03/2019 FINDINGS: The absence of IV contrast limits evaluation of soft tissue pathology. CARDIOVASCULAR: Unremarkable MEDIASTINUM & ENRICO: Stable mediastinal lymphadenopathy with largest lymph node measuring 1.2 cm in short axis diameter in the subcarinal station. LUNGS: Patchy parenchymal fibrosis affecting both lungs with volume loss more conspicuous in the left lower lobe is redemonstrated. There is a developing 1.7 x 0.7 cm left apical nodule (compare image 9 of series 2 this exam with image 11 of series 3 on the prior examination). Calcified nodule in the apical segment left lower lobe. PLEURAL SPACE: No pleural effusions or pneumothorax. OSSEOUS & SOFT TISSUE: Unremarkable ABDOMEN: The visualized portions of the upper abdomen are unremarkable. IMPRESSION: Similar diffuse pulmonary fibrosis with left lung predominant involvement and associated mild mediastinal adenopathy. There is a developing irregular 1.7 x 0.7 cm nodule at the left lung apex. Recommend short-term follow-up in 3-6 months. Electronically signed by: Dell Brown MD (05/27/2020 10:35 AM) [id number]
== END | disposition home or self-care (01) ==
LOC: CT 08:16
PROVIDERS: ATTEND Internal Medicine Critical Care Medicine
DX: J84.10 Pulmonary fibrosis, unspecified (principal); J84.9 Interstitial pulmonary disease, unspecified; R91.1 Solitary pulmonary nodule; R59.9 Enlarged lymph nodes, unspecified
CPT/HCPCS: 71250

== ENCOUNTER → 2020-06-15 | Outpatient (CLI) | payer OTHER ==
--- NOTE | 2020-06-15 08:41 | RAD ---
Carotid doppler ultrasound History: Dizziness Multiple grayscale, color, and duplex spectral analysis waveform sonographic images were acquired of the carotid, subclavian, and vertebral arteries. Comparison: None Findings: RIGHT: PSV cm/sec EDV cm/sec Common carotid artery 91 25 Maximal internal carotid artery 53 20 External carotid artery 85 Vertebral artery 39 ICA/CCA ratio 0.58 LEFT: PSV cm/sec EDV cm/sec Common carotid artery 83 12 Maximum internal carotid artery 69 22 External carotid artery 50 Vertebral artery 17 ICA/CCA ratio 0.83 Velocities used to determine stenosis are known to correlate with NASCET angiographic criteria. There is antegrade flow in the bilateral vertebral arteries. No significant stenosis is demonstrated on grayscale or color images. Impression: 1. There is no evidence of a hemodynamically significant stenosis. Electronically signed by: Kenneth Lyle MD (06/15/2020 8:38 AM) [id number]
== END | disposition home or self-care (01) ==
LOC: US 06:53
PROVIDERS: ATTEND Family Medicine
DX: R42 Dizziness and giddiness (principal)
CPT/HCPCS: 93880

== ENCOUNTER → 2020-08-24 | Outpatient (CLI) | payer OTHER ==
--- NOTE | 2020-08-24 09:15 | RAD ---
CT chest without contrast PQRS statement: CT scans at this facility use dose reduction including either automated exposure control, iterative reconstructions, and /or weight based radiation dosing via mA and kV modification when appropriate to reduce radiation dose to as low as reasonably achievable. HISTORY: Interstitial lung disease. Pulmonary nodule. COMPARISON: CT chest 01/11/2020 and April 03, 2019 FINDINGS: Heart size normal. Calcified plaque aortic arch and coronary arteries. Pulmonary vessels and esophagus are unremarkable. There is stable mediastinal adenopathy largest lymph nodes measuring 2 cm. At the left upper lobe apex there is a stable solid irregular nodule or nodular scarring measuring 1.7 x 0.7 cm image 45. Areas of honeycomb pulmonary fibrosis of both the upper and lower lobes stable. Calcified granulomas. Left lower lobe superior segment 6 Burdick solid nodule abutting major fissure image 106 is larger, previously was 4 mm. Wedge resection suture line left lower lobe. Heterogeneous groundglass opacities and interstitial reticulation of the lungs with the greatest areas involvement of the lower lobes and right upper lobe are stable. Bones unremarkable. IMPRESSION: 1. 6 mm solid nodule left lower lobe has mildly increased in size, previously was 4 mm. This is indeterminate. Attention on follow-up CT imaging in 3-6 months is advised. 2. 17 x 7 mm left apical upper lobe pulmonary nodule is stable to May 2020. Continued follow-up is advised. 3. Pulmonary fibrosis and changes of interstitial lung disease involving both the upper and lower lobes is stable. Given the presence of thoracic adenopathy this could be the sequela of chronic sarcoidosis. Chronic hypersensitivity pneumonitis, or other chronic lung diseases, are also possibilities. 4. Mediastinal adenopathy is stable. Electronically signed by: Levi Conde MD (08/24/2020 9:12 AM) [facility]
== END ==
LOC: CT 08:48
PROVIDERS: ATTEND Internal Medicine Pulmonary Disease
DX: R91.1 Solitary pulmonary nodule (principal); J84.89 Other specified interstitial pulmonary diseases; J84.10 Pulmonary fibrosis, unspecified; I25.10 Atherosclerotic heart disease of native coronary artery without angina pectoris
CPT/HCPCS: 71250

== ENCOUNTER → 2020-09-02 | Outpatient (CLI) | payer OTHER ==
--- NOTE | 2020-09-05 18:03 | RAD ---
EXAM: PET CT EXAM DATE: 09/02/2020 INDICATION: Lung nodule. Follow-up. RADIOPHARMACEUTICAL: 13.47 mCi of F-18 Fluorodeoxyglucose (FDG) I.V. via the right hand. TECHNIQUE: Patient weight: 335 pounds. Following at least four-hour fasting, the patient's blood gluc ose was 96 mg/dl. Approximately 1 hour after administration of FDG, overlapping emission scanning wa s performed from the orbital meatal line through the pelvis. A low-dose CT was performed for attenua tion correction purposes and anatomic localization. Fused images of PET and CT were reviewed. Any st andardized uptake values (SUV) reported are maximum values within a volume region of interest, expres sed in gm/ml. COMPARISON: Chest CT without IV contrast of 08/24/2020 FINDINGS: PET: The solid nodule in the left lower lobe abutting the major fissure is somewhat obscured by respirator y motion artifact on this examination but shows no abnormal FDG uptake. The previously reported 17 x 7 mm apical left upper lobe pulmonary nodule also shows no abnormal FDG uptake with a max SUV of 2.38, compared with a background mediastinal uptake of 4.38. Activity in the pulmonary parenchyma with honeycombing or bronchiectasis is seen is present. [employer] measurem ent in the anterior superior right upper lobe shows a max SUV of 3.31. No abnormal FDG uptake otherwi se identified. Previously noted mediastinal adenopathy shows uptake indistinguishable from background vascular activity. In the abdomen and pelvis, no abnormal FDG uptake is apparent. In the bones, no abnormal FDG uptake shown. CT: Noncontrast CT of the head and neck reveals no significant abnormalities. Pulmonary fibrosis with architectural distortion in an upper lobe predominant distribution remains pr esent along with mediastinal adenopathy. No pleural effusion or pneumothorax. No mass or adenopathy evident in the abdomen or pelvis. The bowel, vessels and solid viscera are unre markable. The bones show multilevel spinal degenerative changes and chronic bilateral L5 pars defects with grad e 1-2 anterolisthesis but no acute or aggressive appearing osseous lesions. IMPRESSION: 1. No evidence of an FDG avid malignancy in the included field of view. 2. Pulmonary nodules remain present and are noted in the setting of pulmonary fibrosis and mediastina l adenopathy. Electronically signed by: Dell Brown MD (09/05/2020 6:01 PM) [id number]
== END ==
LOC: PETSC 09:58
PROVIDERS: ATTEND Internal Medicine Critical Care Medicine
DX: R91.8 Other nonspecific abnormal finding of lung field (principal); J84.10 Pulmonary fibrosis, unspecified; R59.0 Localized enlarged lymph nodes
CPT/HCPCS: 78815; A9552

== ENCOUNTER → 2020-09-02 | Outpatient (CLI) | payer OTHER | LOC: LAB 14:31 | PROVIDERS: ATTEND Internal Medicine Critical Care Medicine | DX: Z01.812 Encounter for preprocedural laboratory examination (principal); J84.89 Other specified interstitial pulmonary diseases; Z20.828 Contact with and (suspected) exposure to other viral communicable diseases | CPT/HCPCS: U0003 ==

== ENCOUNTER → 2021-04-13 | Outpatient (CLI) | payer OTHER ==
[~2021-04-13] MED LIST changes: -CALC600T6 PO; +CALC600T60 PO
[2021-04-13 07:33] LABS: BASO % 1 % (0-3); EOS # 0.2 x10^3/uL (0.0-0.7); EOS % 3 % (0-3); HEMATOCRIT 49.6 % (39.0-53.0); HEMOGLOBIN 16.6 g/dL (13.0-17.5); LYMPH # 1.2 x10^3/uL (1.0-4.8); LYMPH % 21 % (24-48); MEAN CORPUSCULAR HEMOGLOBIN 33 pg (25-35); MEAN CORPUSCULAR HGB CONC 34 g/dL (31-37); MEAN CORPUSCULAR VOLUME 98 fL (79-100); MONO # 0.6 x10^3/uL (0.0-1.1); MONO % 10 % (0-9); NEUT # 3.7 x10^3/uL (1.8-7.7); NEUT % 65 % (31-73); PLATELET COUNT 171 x10^3/uL (140-400); RED BLOOD COUNT 5.05 x10^6/uL (4.30-5.70); RED CELL DISTRIBUTION WIDTH 15.4 % (11.5-14.5); WHITE BLOOD COUNT 5.7 x10^3/uL (4.0-11.0)
[2021-04-13 07:50] LABS: ALBUMIN 3.7 g/dL (3.4-5.0); ALBUMIN/GLOBULIN RATIO 1.2 (1.0-1.7); CALCIUM 8.6 mg/dL (8.5-10.1); CREATININE 0.8 mg/dL (0.7-1.3); GFR 100.4; POTASSIUM 4.1 mmol/L (3.5-5.1); TOTAL BILIRUBIN 0.9 mg/dL (0.2-1.0); TOTAL PROTEIN 6.9 g/dL (6.4-8.2)
[2021-04-13 07:51] LABS: CHOLESTEROL/HDL RATIO 3.2
[2021-04-13 08:04] LABS: FREE T4 0.94 ng/dL (0.76-1.46); THYROID STIM HORMONE (TSH) 1.941 uIU/mL (0.358-3.74)
[2021-04-13 22:08] LABS: HEMOGLOBIN A1C 6.2 % (4.8-5.6)
== END ==
LOC: LAB 06:34
PROVIDERS: ATTEND Nurse Practitioner Gerontology
DX: I10 Essential (primary) hypertension (principal); R73.09 Other abnormal glucose
CPT/HCPCS: 36415; 80053; 80061; 83036; 83721; 84439; 84443; 85025

== ENCOUNTER → 2021-08-16 | Outpatient (CLI) | payer OTHER ==
[~2021-08-16] MED LIST changes: +IOHEXOL 350 MG/ML 100 ML VIAL. ONE
--- NOTE | 2021-08-16 12:39 | RAD ---
PA and lateral views of the chest. Comparison: CTA of the same day. Indication: Hypoxia Findings: The heart size is normal. No pneumothorax or effusion. There is diffuse interstitial scarring with br onchiectasis. The bony structures are intact. Impression: 1. Diffuse interstitial disease with probable bronchiectasis and chronic scarring. Electronically signed by: Silverio Geiger MD (08/16/2021 12:37 PM) [id number]
== END ==
LOC: RAD 11:41
PROVIDERS: ATTEND Internal Medicine Critical Care Medicine
DX: J84.9 Interstitial pulmonary disease, unspecified (principal); R09.02 Hypoxemia
CPT/HCPCS: 71046

== ENCOUNTER → 2021-08-16 | Outpatient (CLI) | payer OTHER ==
[~2021-08-16] MED LIST changes: +CONTRAST GIVEN. MC PRN; +IOHEXOL 350 MG/ML 100 ML VIAL. IV ONE; -IOHEXOL 350 MG/ML 100 ML VIAL. ONE
--- NOTE | 2021-08-16 13:17 | RAD ---
CT angiography chest with contrast PQRS statement: CT scans at this facility use dose reduction including either automated exposure cont rol, iterative reconstructions, and /or weight based radiation dosing via mA and kV modification when appropriate to reduce radiation dose to as low as reasonably achievable. Contrast: 100 mL Omnipaque 350 intravenous contrast with 3-D MIP reconstructions of the arteries acqu ired. HISTORY: Shortness of breath. Interstitial lung disease. COMPARISON: CT chest May 25, 2020 FINDINGS: Mild tortuosity thoracic aorta. Ascending aorta diameter 3.3 cm. Left coronary calcified pl aque. Heart size upper limits of normal this is stable. Esophagus unremarkable. Decreased density of the peripheral small lobar pulmonary arterial branches may decrease sensitivity to detect small perip heral lobar emboli, in light of this there is no free pulmonary artery emboli evident. There is mild mediastinal adenopathy which is stable with the largest mediastinal lymph node subcarinal station sheridan suring 2.5 x 1.5 cm. There is extensive bilateral pulmonary heterogeneous groundglass opacities and i nterstitial reticulation which have progressed superimposed upon a background of chronic cortical bon y fibrosis involving both the upper and lower lungs, the areas of honeycomb fibrosis of also progress ed although to a lesser degree relative to the areas of groundglass density/interstitial reticulation . There are areas of fissural pleural nodularity which have also increased most demonstrably across t he left major fissure measuring up to 8 mm image 50 and at the major fissure towards the apex measuri ng 20 x 8 mm, previously measured 17 x 7 mm. Bones are unremarkable. IMPRESSION: 1. No pulmonary artery emboli. 2. Chronic interstitial lung disease with progression of pulmonary fibrosis as well as areas of pneum onitis with extensive groundglass opacities and interstitial reticulation since the prior exam. There are also areas of increased fissural pleural nodularity at the left major fissure as described above . Given the presence of mediastinal and hilar adenopathy this may represent progressive sarcoidosis a ssociated lung disease. Other chronic interstitial lung disease etiologies with progressive fibrosis and areas of acute inflammation from active pneumonitis are also a consideration. 3. Mediastinal and hilar adenopathy is stable. Electronically signed by: Levi Conde MD (08/16/2021 1:15 PM) [facility]
== END ==
LOC: CT 11:29
PROVIDERS: ATTEND Family Medicine
DX: R59.0 Localized enlarged lymph nodes (principal); J84.89 Other specified interstitial pulmonary diseases; J84.10 Pulmonary fibrosis, unspecified; J18.9 Pneumonia, unspecified organism; R91.8 Other nonspecific abnormal finding of lung field; I25.10 Atherosclerotic heart disease of native coronary artery without angina pectoris
CPT/HCPCS: 71275; Q9967

== ENCOUNTER → 2021-10-25 | Outpatient (CLI) | payer OTHER ==
[~2021-10-25] MED LIST changes: -CONTRAST GIVEN. MC PRN; -IOHEXOL 350 MG/ML 100 ML VIAL. IV ONE
== END ==
LOC: EDSTATUS 12:45 → PF 12:46
PROVIDERS: ATTEND Internal Medicine Critical Care Medicine
DX: R06.02 Shortness of breath (principal)
CPT/HCPCS: 94618

== ENCOUNTER → 2021-11-24 | Outpatient (CLI) | payer OTHER ==
--- NOTE | 2021-11-24 11:20 | RAD ---
CT THORAX WO History: Interstitial lung disease. Comparison: 05/27/2020, 08/16/2021, 04/03/2019 Technique: Noncontrast CT of the chest. Findings: Assessment is limited by lack of IV contrast. Cardiovascular: Normal caliber aorta with mild calcification. Mild enlargement of the pulmonary arter ies, right main pulmonary artery measuring 2.9 cm diameter, likely reflects pulmonary arterial hypert ension. Mild coronary artery calcification. Normal heart size. Mediastinum and bismark: Small calcified mediastinal and hilar lymph nodes. Prominent noncalcified media stinal lymph nodes measuring 1.1 cm short axis at the right lower paratracheal, 1.0 cm at the carinal , and 1.4 cm short axis subcarinal. Esophagus and thyroid are unremarkable. Airways, lungs and pleura: The airways are clear. No significant bronchiectasis. No acute airspace co nsolidation. Redemonstrated are areas of parenchymal fibrosis characterized by subpleural reticulatio n and groundglass opacities most significantly involving anterior right upper, lingula and bilateral lower lobes. Extent and distribution not significantly changed from July 2021. Relative prominenc e of groundglass is probably increased from May 2020 and definitely progressive from March 2019. Left apical nodular scarring appears less conspicuous than 2020 exam consistent with benign process. Anterior left upper lobe and lingular demonstrate peripheral honeycombing. No suspicious nodules. No effusion. Upper abdomen: Limited evaluation of the upper abdomen is unremarkable. Osseous structures and soft tissues: Within normal limits for age. Impression: 1. Fibrotic lung disease characterized by multifocal upper and lower patchy areas of reticulation an d groundglass opacity with some areas of honeycombing. Findings are similar to recent July 2021 c omparison however progressive from May 2020 and March 2019. 2. Enlargement of the pulmonary arteries likely represents pulmonary arterial hypertension. ------ Exposure: One or more of the following individualized dose reduction techniques were utilized for thi s examination: 1. Automated exposure control 2. Adjustment of the mA and/or kV according to patient size 3. Use of iterative reconstruction technique. Electronically signed by: Jos Marie MD (11/24/2021 11:18 AM) [id number]
== END ==
LOC: CT 15:47
PROVIDERS: ATTEND Internal Medicine Critical Care Medicine
DX: J84.9 Interstitial pulmonary disease, unspecified (principal); J84.10 Pulmonary fibrosis, unspecified; I25.10 Atherosclerotic heart disease of native coronary artery without angina pectoris; R59.0 Localized enlarged lymph nodes
CPT/HCPCS: 71250